=== PATIENT | female | born 1965 | race Caucasian/White ===

== ENCOUNTER 2024-09-26 23:20 | Observation (INO) | payer OTHER, SELFPAY ==
[2024-09-26] VITALS (8 sets, daily range): BP systolic 178–193; BP diastolic 95–110; PULSE 88–114; RESP 13–23; TEMP 36.7; O2SAT 99–100
--- NOTE | ~2024-09-26 | XR_ITS ---
CHEST RADIOGRAPH, PA AND LATERAL CLINICAL HISTORY: CHEST PAIN . COMPARISON: 10/03/2004 TECHNIQUE: PA and lateral views of the chest. FINDINGS The cardiomediastinal silhouette is unremarkable. The lungs are clear. IMPRESSION: No focal infiltrate or effusion. Reviewed, dictated and finalized at location A.
--- NOTE | 2024-09-26 23:23 | ECG_ITS ---
Test Date: 2024-09-26 23:26:39 Measurements Intervals [place] Rate: 92 P: 33 IN: 163 QRS: 8 QRSD: 106 T: 3 QT: 366 QTc: 453 Interpretive Statements SINUS RHYTHM POSSIBLE RIGHT VENTRICULAR CONDUCTION DELAY [RSR (QR) IN V1/V2] POSSIBLE LATERAL MYOCARDIAL INFARCTION , PROBABLY OLD [30 ms Q WAVE IN I/aVL/V5/V6] No previous ECG available for comparison Electronically Signed On 09-27-2024 14:00:47 CDT by Miki Rowland M.D.
[2024-09-26 23:38] LABS: Hematocrit 38.4 % (37.0-47.0); Hemoglobin 13.9 g/dL (12.0-15.0); Immature Granulocyte Percent A 0.2 % (0-0.5); Lymphocytes Absolute Auto 1.68 K/mm3 (0.9-3.2); Mean Corpuscular HGB Conc 36.2 g/dl (32-36); Mean Corpuscular Hemoglobin 33.9 pg (26-34); Mean Corpuscular Volume 93.7 fl (80-100); Nucleated Red Blood Cells Absolute Auto 0.000 K/mm3 (0.0-0.012); Nucleated Red Blood Cells Perc 0.0 % (0.0-0.2); Platelet Count Result 236 k/mm3 (150-375); Red Blood Count 4.10 M/mm3 (4.2-5.4); White Blood Count 6.3 K/mm3 (4.5-10.0)
--- NOTE | 2024-09-26 23:45 | ED.CHESTPAIN ---
HPI - Chest Pain General Chief Complaint: Chest Pain <JOHN Crump Last Filed: 09/27/24 02:49> Stated Complaint: chest pain <JOHN Crump Last Filed: 09/27/24 02:49> Time Seen by Provider: 09/26/24 23:34 <JOHN Crump Last Filed: 09/27/24 02:49> Source: patient <JOHN Crump Last Filed: 09/27/24 02:49> Mode of arrival: ambulatory <JOHN Crump Last Filed: 09/27/24 02:49> Limitations: no limitations <JOHN Crump Last Filed: 09/27/24 02:49> History of Present Illness HPI narrative: This is a 59-year-old female that presents to the emergency department for feelings of palpitations. Reports she was seated when this started. She felt like her heart was racing. Her heart rate was in the 100s. She then noted some intermittent achy left-sided chest discomfort. Reports she recently had a stress test in the last 5 months. No other current symptoms. <JOHN Crump Last Filed: 09/27/24 02:49> Related Data Home Medications: Home Medications ?Medication ?Instructions ?Recorded ?Confirmed ?Last Taken ?Type hydrochlorothiazide 25 mg tablet 25 mg PO DAILY 09/26/24 09/26/24 Unknown History losartan 50 mg tablet 25 mg PO DAILY 09/26/24 09/26/24 Unknown History metoprolol tartrate 50 mg tablet 50 mg PO BID 09/26/24 09/26/24 Unknown History <JOHN Crump Last Filed: 09/27/24 02:49> Allergies/Adverse Reactions: Allergies Allergy/AdvReac Type Severity Reaction Status Date / Time lisinopril AdvReac Intermediate Cough Verified 09/26/24 23:28 <JOHN Crump Last Filed: 09/27/24 02:49> Review of Systems Review of Systems: All systems reviewed & are unremarkable except as noted in HPI and below <JOHN Crump Last Filed: 09/27/24 02:49> [facility] Past Medical History Medical History: Medical History (Updated 09/27/24 @ 01:54 by Minda Ramos PA-C) History of hypertension <Minda Ramos PA-C - Last Filed: 09/27/24 02:49> Social History Social History: Social History (Updated 09/26/24 @ 23:47 by Minda Ramos PA-C) Smoking status: Never smoker <Minda Ramos PA-C - Last Filed: 09/27/24 02:49> Exam Narrative: GENERAL: Well-appearing, well-nourished, and in no acute distress. HEAD: Normocephalic, atraumatic. EYES: EOMI. ENT: Nares clear, no rhinorrhea or epistaxis. Mucous membranes moist. Oropharynx without tonsillar hypertrophy exudate or other lesions. CHEST: Clear to auscultation. No respiratory distress. No wheezes rales or rhonchi HEART: Regular rate and rhythm. No murmur heard. Normal peripheral pulses. EXTREMITIES: Normal range of motion. No edema. SKIN: Warm, dry, no rash. NEURO: No focal deficits. Alert and oriented x3. PSYCH: Normal mood and affect <Minda Ramos PA-C - Last Filed: 09/27/24 02:49> Course Course Emergency Course: Patient updated on her workup and recommendation for admission <Minda Ramos PA-C - Last Filed: 09/27/24 02:49> CLAIMS SUPPORT SPECIALIST/PA Physician Supervision This visit was performed by both a physician and an APC. I performed all aspects of the MDM as documented. <Romero Bonilla MD - Last Filed: 09/27/24 02:54> Consultations Consultation #1: Spoke with hospitalist about patient and workup who accepts admission <Minda Ramos PA-C - Last Filed: 09/27/24 02:49> Date: 09/27/24 <Minda Raoms PA-C - Last Filed: 09/27/24 02:49> Vital Signs Vital signs: Vital Signs Temperature 36.7 C 09/26/24 23:23 Pulse Rate 92 09/26/24 23:23 Respiratory Rate 20 09/26/24 23:23 Blood Pressure 193/110 H 09/26/24 23:23 Pulse Oximetry 100 09/26/24 23:23 Oxygen Delivery Room Air 09/26/24 23:23 Temperature 36.7 C 09/26/24 23:23 Pulse Rate 77 09/27/24 02:30 Respiratory Rate 13 09/27/24 02:30 Blood Pressure 153/92 H 09/27/24 02:21 Pulse Oximetry 96 09/27/24 02:30 Oxygen Delivery Room Air 09/27/24 01:11 <Minda Ramos PA-C - Last Filed: 09/27/24 02:49> Vital Signs Temperature 36.7 C 09/26/24 23:23 Pulse Rate 92 09/26/24 23:23 Respiratory Rate 20 09/26/24 23:23 Blood Pressure 193/110 H 09/26/24 23:23 Pulse Oximetry 100 09/26/24 23:23 Oxygen Delivery Room Air 09/26/24 23:23 Temperature 36.7 C 09/26/24 23:23 Pulse Rate 77 09/27/24 02:30 Respiratory Rate 13 09/27/24 02:30 Blood Pressure 153/92 H 09/27/24 02:21 Pulse Oximetry 96 09/27/24 02:30 Oxygen Delivery Room Air 09/27/24 01:11 <Romero Bonilla MD - Last Filed: 09/27/24 02:54> MDM - Chest Pain MDM Narrative Medical decision making narrative: Patient presents to the ER for chest pain, palpitations. Hypertensive upon arrival. This downtrended without intervention. Patient in normal sinus rhythm. CBC without concerning findings. Metabolic panel with hyponatremia, hypokalemia. Magnesium is also low. L of normal saline ordered. 2 g of magnesium as well as 40 mg of potassium given. EKG without acute ST changes, her baseline troponin is negative. Her heart score is 2. Patient will be admitted for further management of electrolyte derangements. She does report being outside most of the day, she also takes a diuretic. <Minda Ramos PA-C - Last Filed: 09/27/24 02:49> Differential Diagnosis Differential diagnosis: Likely stable angina, atypical chest pain, costochondritis and other (hypertension, hypertensive urgency) <Minda Ramos PA-C - Last Filed: 09/27/24 02:49> Lab Data Attestation: I reviewed the patient's lab results. <Minda Ramos PA-C - Last Filed: 09/27/24 02:49> Result diagrams: 09/26/24 23:33 09/26/24 23:33 <Minda Ramos PA-C - Last Filed: 09/27/24 02:49> Labs: Lab Results 09/26/24 09/27/24 Range/Units 23:33 02:17 WBC 6.3 (4.5-10.0) K/mm3 RBC 4.10 L (4.2-5.4) M/mm3 Hgb 13.9 (12.0-15.0) g/dL Hct 38.4 (37.0-47.0) % MCV 93.7 (80-100) fl MCH 33.9 (26-34) pg MCHC 36.2 H (32-36) g/dl RDW 12.2 (11.5-14.5) % Plt Count 236 (150-375) k/mm3 MPV 9.0 (7.4-10.4) fl Immature Gran % (Auto) 0.2 (0-0.5) % Neut % (Auto) 64.6 (45.5-73.1) % Lymph % (Auto) 26.7 (18.3-44.2) % [place] % (Auto) 7.3 (2.6-8.5) % Eos % (Auto) 0.6 (0-4.4) % Baso % (Auto) 0.6 (0.2-1.2) % Lymph # (Auto) 1.68 (0.9-3.2) K/mm3 [place] # (Auto) 0.5 (0.1-0.6) K/mm3 Eos # (Auto) 0.0 (0-0.3) K/mm3 Baso # (Auto) 0.0 (0.0-0.1) K/mm3 Abs Immat Gran (auto) 0.01 (0.00-0.031) K/mm3 Absolute Neuts (auto) 4.1 (1.3-6.7) K/mm3 Absolute Nucleated RBC 0.000 (0.0-0.012) K/mm3 Nucleated RBC % 0.0 (0.0-0.2) % PT 12.9 (11.1-14.7) Seconds INR 1.0 APTT 29.7 (22.3-36.8) Seconds Sodium 123 L (137-145) mmol/L Potassium 3.2 L (3.4-5.0) mmol/L Chloride 86 L (98-107) mmol/L Carbon Dioxide 24 (22-30) mmol/L Anion Gap 13 H (4-12) mmol/L BUN 6 L (7-17) mg/dL Creatinine 0.77 (0.7-1.0) mg/dL Estim Creat Clear Calc 72 ml/min Estimated GFR > 60 (59 - ) Glucose 86 (65-110) mg/dL Calcium 9.7 (8.4-10.2) mg/dL Magnesium 1.5 L (1.6-2.3) mg/dL Total Bilirubin 1.1 (0.2-1.3) mg/dL AST 60 H (14-36) U/L ALT 48 H (6-35) U/L Alkaline Phosphatase 103 (38-126) U/L Total Creatine Kinase 114 (30-135) U/L Troponin I < 0.012 < 0.012 (0.000-0.034) ng/mL Total Protein 8.4 H (6.3-8.2) g/dL Albumin 4.9 (3.5-5.1) g/dL Lipase 158 (23-300) U/L TSH (Reflex) Pending Urine Color Yellow (Yellow) Urine Appearance Clear (Clear) Urine pH 6.5 (5.0-9.0) Ur Specific [place] 1.009 (1.001-1.035) Urine Protein Negative (Negative) mg/dL Urine Glucose (UA) Negative (Negative) mg/dL Urine Ketones Trace H (Negative) mg/dL Ur Blood (Man) Negative (Negative) Urine Nitrate Negative (Negative) Urine Bilirubin Negative (Negative) Urine Urobilinogen 0.2 (<2.0) mg/dL Leukocyte Esterase Rfl Negative (Negative) KEVYN/UL <Minda Ramos PA-C - Last Filed: 09/27/24 02:49> Lab Results 09/26/24 09/27/24 Range/Units 23:33 02:17 WBC 6.3 (4.5-10.0) K/mm3 RBC 4.10 L (4.2-5.4) M/mm3 Hgb 13.9 (12.0-15.0) g/dL Hct 38.4 (37.0-47.0) % MCV 93.7 (80-100) fl MCH 33.9 (26-34) pg MCHC 36.2 H (32-36) g/dl RDW 12.2 (11.5-14.5) % Plt Count 236 (150-375) k/mm3 MPV 9.0 (7.4-10.4) fl Immature Gran % (Auto) 0.2 (0-0.5) % Neut % (Auto) 64.6 (45.5-73.1) % Lymph % (Auto) 26.7 (18.3-44.2) % [place] % (Auto) 7.3 (2.6-8.5) % Eos % (Auto) 0.6 (0-4.4) % Baso % (Auto) 0.6 (0.2-1.2) % Lymph # (Auto) 1.68 (0.9-3.2) K/mm3 [place] # (Auto) 0.5 (0.1-0.6) K/mm3 Eos # (Auto) 0.0 (0-0.3) K/mm3 Baso # (Auto) 0.0 (0.0-0.1) K/mm3 Abs Immat Gran (auto) 0.01 (0.00-0.031) K/mm3 Absolute Neuts (auto) 4.1 (1.3-6.7) K/mm3 Absolute Nucleated RBC 0.000 (0.0-0.012) K/mm3 Nucleated RBC % 0.0 (0.0-0.2) % PT 12.9 (11.1-14.7) Seconds INR 1.0 APTT 29.7 (22.3-36.8) Seconds Sodium 123 L (137-145) mmol/L Potassium 3.2 L (3.4-5.0) mmol/L Chloride 86 L (98-107) mmol/L Carbon Dioxide 24 (22-30) mmol/L Anion Gap 13 H (4-12) mmol/L BUN 6 L (7-17) mg/dL Creatinine 0.77 (0.7-1.0) mg/dL Estim Creat Clear Calc 72 ml/min Estimated GFR > 60 (59 - ) Glucose 86 (65-110) mg/dL Calcium 9.7 (8.4-10.2) mg/dL Magnesium 1.5 L (1.6-2.3) mg/dL Total Bilirubin 1.1 (0.2-1.3) mg/dL AST 60 H (14-36) U/L ALT 48 H (6-35) U/L Alkaline Phosphatase 103 (38-126) U/L Total Creatine Kinase 114 (30-135) U/L Troponin I < 0.012 < 0.012 (0.000-0.034) ng/mL Total Protein 8.4 H (6.3-8.2) g/dL Albumin 4.9 (3.5-5.1) g/dL Lipase 158 (23-300) U/L TSH (Reflex) Pending Urine Color Yellow (Yellow) Urine Appearance Clear (Clear) Urine pH 6.5 (5.0-9.0) Ur Specific [place] 1.009 (1.001-1.035) Urine Protein Negative (Negative) mg/dL Urine Glucose (UA) Negative (Negative) mg/dL Urine Ketones Trace H (Negative) mg/dL Ur Blood (Man) Negative (Negative) Urine Nitrate Negative (Negative) Urine Bilirubin Negative (Negative) Urine Urobilinogen 0.2 (<2.0) mg/dL Leukocyte Esterase Rfl Negative (Negative) KEVYN/UL <Romero Bonilla MD - Last Filed: 09/27/24 02:54> Imaging Data Radiologist's impression: Chest x-ray: No focal consolidation, pleural effusion or pneumothorax. No cardiomegaly <Minda Ramos PA-C - Last Filed: 09/27/24 02:49> ECG Data EKG #1: ECG completion date: 09/26/24 <JOHN Crump Last Filed: 09/27/24 02:49> EKG Interpretation: normal rate, sinus rhythm, no ST changes and normal QT <Minda Ramos PA-C - Last Filed: 09/27/24 02:49> Critical Care Time Critical Care Time Critical Care Time: No <JOHN Crump Last Filed: 09/27/24 02:49> Discharge Plan Discharge Clinical Impression: Hyponatremia, Hypokalemia Chest pain Qualifiers: Chest pain type: unspecified Qualified Code(s): R07.9 - Chest pain, unspecified <JOHN Crump Last Filed: 09/27/24 02:49> Patient Disposition: Still a Patient <JOHN Crump Last Filed: 09/27/24 02:49> Condition: Stable <JOHN Crump Last Filed: 09/27/24 02:49> Patient Language: Slovenian <JOHN Crump Last Filed: 09/27/24 02:49> Prescriptions: No Action hydrochlorothiazide 25 mg tablet 25 mg PO DAILY losartan 50 mg tablet 25 mg PO DAILY metoprolol tartrate 50 mg tablet 50 mg PO BID <JOHN Crump Last Filed: 09/27/24 02:49> Follow-up/Referrals: Haris Craig MD [Physician] - <JOHN Crump Last Filed: 09/27/24 02:49> Quality HEART score for chest pain patients History: slightly suspicious <JOHN Crump Last Filed: 09/27/24 02:49> ECG: normal <JOHN Crump Last Filed: 09/27/24 02:49> Age: > 45 and < 65 years <JOHN Crump Last Filed: 09/27/24 02:49> Risk factors: 1 or 2 risk factors <JOHN Crump Last Filed: 09/27/24 02:49> Troponin: < or = to 1x normal limit <JOHN Crump Last Filed: 09/27/24 02:49> Heart score: 2 <JOHN Crump Last Filed: 09/27/24 02:49> 2 <Romero Bonilla MD - Last Filed: 09/27/24 02:54>
[2024-09-26] MEDS: ASPIRIN 81 MG CHEWABLE TABLET 324 MG PO (23:47)
[2024-09-26 23:48] LABS: Alanine Aminotransferase 48 U/L (6-35); Albumin Level 4.9 g/dL (3.5-5.1); Alkaline Phosphatase 103 U/L (38-126); Anion Gap 13 mmol/L (4-12); Aspartate Amino Transferase 60 U/L (14-36); Bilirubin,Total 1.1 mg/dL (0.2-1.3); Blood Urea Nitrogen 6 mg/dL (7-17); Calcium 9.7 mg/dL (8.4-10.2); Carbon Dioxide 24 mmol/L (22-30); Chloride 86 mmol/L (98-107); Estimated CRCL calculation 72 ml/min; Estimated Glomerular Filt Rate > 60; Glucose 86 mg/dL (65-110); Lipase 158 U/L (23-300); Potassium 3.2 mmol/L (3.4-5.0); Sodium 123 mmol/L (137-145); Total Protein 8.4 g/dL (6.3-8.2)
[2024-09-26 23:50] LABS: INR 1.0; Prothrombin Time 12.9 Seconds (11.1-14.7)
[2024-09-26 23:51] LABS: Partial Thromboplastin Time 29.7 Seconds (22.3-36.8)
[2024-09-26] MEDS: MORPHINE SULFATE (*CRX) 4 MG/ML INJ IV PUSH (23:58)
[2024-09-26] MEDS: ONDANSETRON INJ 4 MG/2 ML VIAL IV PUSH (23:58)
[2024-09-27] VITALS (34 sets, daily range): BP systolic 141–172; BP diastolic 80–98; PULSE 75–89; RESP 13–21; TEMP 36.5–36.7; O2SAT 92–100; BMI 28.5
[2024-09-27] LABS: Troponin I < 0.012 ng/mL (0.000-0.034)
[2024-09-27 00:17] LABS: Creatine Kinase 114 U/L (30-135); Magnesium 1.5 mg/dL (1.6-2.3)
[2024-09-27] MEDS: POTASSIUM CHLORIDE 20 MEQ ER TABLET 40 MEQ PO (00:31)
[2024-09-27] MEDS: SODIUM CHLORIDE 0.9% IV 1,000 ML 999 ML IV CONT (00:31)
[2024-09-27] MEDS: MAGNESIUM SULF 2 GM/WATER 50ML 2 GM/50 ML BAG IVPB (00:45)
--- NOTE | 2024-09-27 02:07 | ECG_ITS ---
Test Date: 2024-09-27 02:13:11 Measurements Intervals [place] Rate: 81 P: 24 IN: 170 QRS: 19 QRSD: 102 T: 10 QT: 390 QTc: 455 Interpretive Statements SINUS RHYTHM POSSIBLE RIGHT VENTRICULAR CONDUCTION DELAY [RSR (QR) IN V1/V2] POSSIBLE LATERAL MYOCARDIAL INFARCTION , PROBABLY OLD [30 ms Q WAVE IN I/aVL/V5/V6] no change compared to prior EKG Electronically Signed On 09-27-2024 14:03:09 CDT by Miki Rowland M.D.
[2024-09-27 02:24] LABS: Add Urine Microscopic? NO; Appearance Urine Clear (Clear); Glucose Urine UA Negative (Negative); Leukocyte Esterase Ur Negative LEU/UL (Negative); Nitrate Urine Negative (Negative); Specific Grav Ur 1.009 (1.001-1.035)
[2024-09-27 02:46] LABS: Troponin I < 0.012 ng/mL (0.000-0.034)
[2024-09-27 03:05] LABS: Thyroid Stimulating Hormone Reflex 1.980 uIU/mL (0.465-4.68)
--- NOTE | 2024-09-27 03:46 | ADMGEN ---
This patient, Karina Rico, was admitted to Medical Room 344-01. Patient/family oriented to hospital policies and general routines including ID bracelet, bed and alarms, visiting hours, pain management, procedures, bathroom and other care routines, personal items, smoking policy, room service/diet, and visiting hours. Information on how to activate the Rapid Response Team has been discussed. Patient/Family are encouraged to report perceived risks to care and to ask questions if they do not understand what they are told or what they should do.
[2024-09-27 05:48] LABS: Hematocrit 34.7 % (37.0-47.0); Hemoglobin 12.6 g/dL (12.0-15.0); Immature Granulocyte Percent A 0.2 % (0-0.5); Lymphocytes Absolute Auto 1.44 K/mm3 (0.9-3.2); Mean Corpuscular HGB Conc 36.3 g/dl (32-36); Mean Corpuscular Hemoglobin 34.3 pg (26-34); Mean Corpuscular Volume 94.6 fl (80-100); Nucleated Red Blood Cells Absolute Auto 0.000 K/mm3 (0.0-0.012); Nucleated Red Blood Cells Perc 0.0 % (0.0-0.2); Platelet Count Result 193 k/mm3 (150-375); Red Blood Count 3.67 M/mm3 (4.2-5.4); White Blood Count 4.6 K/mm3 (4.5-10.0)
[2024-09-27 06:01] LABS: Alanine Aminotransferase 37 U/L (6-35); Albumin Level 3.9 g/dL (3.5-5.1); Alkaline Phosphatase 77 U/L (38-126); Anion Gap 8 mmol/L (4-12); Aspartate Amino Transferase 45 U/L (14-36); Bilirubin,Total 1.1 mg/dL (0.2-1.3); Blood Urea Nitrogen 5 mg/dL (7-17); Calcium 9.0 mg/dL (8.4-10.2); Carbon Dioxide 26 mmol/L (22-30); Chloride 90 mmol/L (98-107); Estimated CRCL calculation 81 ml/min; Estimated Glomerular Filt Rate > 60; Glucose 75 mg/dL (65-110); Magnesium 2.0 mg/dL (1.6-2.3); Potassium 3.8 mmol/L (3.4-5.0); Sodium 124 mmol/L (137-145); Total Protein 6.7 g/dL (6.3-8.2)
[2024-09-27 06:13] LABS: Troponin I < 0.012 ng/mL (0.000-0.034)
[2024-09-27] MEDS: ASPIRIN 81 MG CHEWABLE TABLET PO (08:16)
[2024-09-27] MEDS: METOPROLOL TARTRATE 50 MG TAB PO (08:16)
[2024-09-27] MEDS: LOSARTAN POTASSIUM 25 MG TABLET PO (08:17)
[2024-09-27] MEDS: PANTOPRAZOLE 40 MG TABLET PO (08:17)
[2024-09-27] MEDS: ENOXAPARIN 40 MG/0.4 ML SYRINGE SUB-Q (08:17)
[2024-09-27] MEDS: SODIUM CHLORIDE 0.9% IV 1,000 ML 250 ML IV CONT (12:03)
[2024-09-27 13:15] LABS: Anion Gap 15 mmol/L (4-12); Blood Urea Nitrogen 6 mg/dL (7-17); Calcium 9.4 mg/dL (8.4-10.2); Carbon Dioxide 21 mmol/L (22-30); Chloride 90 mmol/L (98-107); Estimated CRCL calculation 77 ml/min; Estimated Glomerular Filt Rate > 60; Glucose 72 mg/dL (65-110); Potassium 3.6 mmol/L (3.4-5.0); Sodium 126 mmol/L (137-145)
--- NOTE | 2024-09-27 13:49 | P.SS_ITS ---
Same Day Admit/Disch: HPI History of Present Illness Chief complaint: Palpatations Narrative: Karina Rico is a 59 year old female who presented to the ED with complaints of ill feeling with palpatations and left sided chest discomfort. Patient reported past medical history of HTN and GERD. She reported a recent stress test less then 5 months prior that was negative. Patient reported yesterday she was outside all day in the heat had 3 cocktails but reported no water hydration and she did take her hydrochlorothiazide of 25 mg at morning. patient in the emergency department was found to be dehydrated her absence of her labs showing hyponatremia and trace ketones in urine. Patient was also found to have hyper kalemia and hypomagnesia likely all through causes of patient's palpitations. Patient was also tachycardiac at [address]/T changes on EKG. patient was started on IV fluids emergency department potassium magnesium replaced patient admitted to the medical unit for further evaluation and treatment of hyponatremia secondary to severe dehydration. [facility] Past Medical History Medical History GERD (gastroesophageal reflux disease) History of hypertension Family History Family History Mother Lung cancer Breast cancer Emphysema lung Father COPD (chronic obstructive pulmonary disease) CHF (congestive heart failure) Emphysema lung Social History Social History Smoking status: Never smoker Alcohol intake: current Substance use: never Other substance usage details: social Do You Feel Safe in your Home?: Yes Lack of Transportation: No Lack of Food: Never True Current Housing: I Have Housing Concerned About Future Housing: No Difficulty Paying Gas/Electric Bills: No Difficulty Paying for Meds: No Currently Unemployed: No Education: High School Diploma/GED Difficulty w/ Childcare or Family Care: No Spiritual care concerns: No Same Day Admit/Disch: Med Pre-admit Medications Home Medications ?Medication ?Instructions ?Recorded ?Confirmed ?Type hydrochlorothiazide 25 mg tablet 25 mg PO DAILY 09/26/24 09/26/24 History losartan 50 mg tablet 25 mg PO DAILY 09/26/24 09/26/24 History metoprolol tartrate 50 mg tablet 50 mg PO BID 09/26/24 09/26/24 History pantoprazole 40 mg tablet,delayed 40 mg PO QAM 09/27/24 09/27/24 History release (Protonix) potassium 20 mg chewable tablet 20 mg PO DAILY 09/27/24 09/27/24 History Review of Systems Review of Systems All systems reviewed & are unremarkable except as noted in HPI and below Constitutional Constitutional: Reports no additional constitutional complaints Eyes Eyes: Reports no additional eye complaints Cardiovascular Cardiovascular: Reports no additional cardiovascular complaints Respiratory Respiratory: Reports no additional respiratory complaints Gastrointestinal Gastrointestinal: Reports no additional gastrointestinal complaints Musculoskeletal Musculoskeletal: Reports no additional musculoskeletal complaints Integumentary/Breasts Skin/Breast: Reports system reviewed and no additional complaints, except as docu Psychiatric Psychiatric: Reports no additional psychiatric complaints Exam Const: General: comfortable and no acute distress HENMT: Ears: TM's normal bilaterally Mouth: Yes moist mucous membranes Eyes: General: appearance normal, both eyes and all related structures Sclera: sclerae normal Pupils: Equal, round and reactive pupils present Neck: Neck: supple and no JVD Resp: Effort & Inspection: normal respiratory effort Auscultation: clear to auscultation bilaterally Cardio: Rate: regular rate Rhythm: regular rhythm GI: GI Palp: Yes Soft to palpation Auscultation: normal bowel sounds Skin: General skin exam: normal color and no rashes or lesions noted Wounds: no wounds Neuro: General: gait normal Speech: normal speech Motor exam (neuro): 5/5 motor strength present throughout Sensory Exam: normal sensation Extrem: General: normal to inspection Psych: Mental Status: mental status grossly normal Affect: normal affect DS: Data Data Completed and Pending Labs on day of discharge: Labs from last 24 hours 09/27/24 09/27/24 09/27/24 12:54 05:27 02:17 WBC 4.6 RBC 3.67 L Hgb 12.6 Hct 34.7 L MCV 94.6 MCH 34.3 H MCHC 36.3 H RDW 11.9 Plt Count 193 MPV 9.4 Immature Gran % (Auto) 0.2 Neut % (Auto) 58.8 Lymph % (Auto) 31.2 [place] % (Auto) 8.5 Eos % (Auto) 0.4 Baso % (Auto) 0.9 Lymph # (Auto) 1.44 [place] # (Auto) 0.4 Eos # (Auto) 0.0 Baso # (Auto) 0.0 Abs Immat Gran (auto) 0.01 Absolute Neuts (auto) 2.7 Absolute Nucleated RBC 0.000 Nucleated RBC % 0.0 PT INR APTT Sodium 126 L 124 L Potassium 3.6 3.8 Chloride 90 L 90 L Carbon Dioxide 21 L 26 Anion Gap 15 H 8 BUN 6 L 5 L Creatinine 0.72 0.68 L Estim Creat Clear Calc 77 81 Estimated GFR > 60 > 60 Glucose 72 75 Calcium 9.4 9.0 Phosphorus 3.7 Magnesium 2.0 Total Bilirubin 1.1 AST 45 H ALT 37 H Alkaline Phosphatase 77 Total Creatine Kinase Troponin I < 0.012 < 0.012 Total Protein 6.7 Albumin 3.9 Lipase TSH (Reflex) 1.980 Urine Color Yellow Urine Appearance Clear Urine pH 6.5 Ur Specific [place] 1.009 Urine Protein Negative Urine Glucose (UA) Negative Urine Ketones Trace H Ur Blood (Man) Negative Urine Nitrate Negative Urine Bilirubin Negative Urine Urobilinogen 0.2 Leukocyte Esterase Rfl Negative 09/26/24 23:33 WBC 6.3 RBC 4.10 L Hgb 13.9 Hct 38.4 MCV 93.7 MCH 33.9 MCHC 36.2 H RDW 12.2 Plt Count 236 MPV 9.0 Immature Gran % (Auto) 0.2 Neut % (Auto) 64.6 Lymph % (Auto) 26.7 [place] % (Auto) 7.3 Eos % (Auto) 0.6 Baso % (Auto) 0.6 Lymph # (Auto) 1.68 [place] # (Auto) 0.5 Eos # (Auto) 0.0 Baso # (Auto) 0.0 Abs Immat Gran (auto) 0.01 Absolute Neuts (auto) 4.1 Absolute Nucleated RBC 0.000 Nucleated RBC % 0.0 PT 12.9 INR 1.0 APTT 29.7 Sodium 123 L Potassium 3.2 L Chloride 86 L Carbon Dioxide 24 Anion Gap 13 H BUN 6 L Creatinine 0.77 Estim Creat Clear Calc 72 Estimated GFR > 60 Glucose 86 Calcium 9.7 Phosphorus Magnesium 1.5 L Total Bilirubin 1.1 AST 60 H ALT 48 H Alkaline Phosphatase 103 Total Creatine Kinase 114 Troponin I < 0.012 Total Protein 8.4 H Albumin 4.9 Lipase 158 TSH (Reflex) Urine Color Urine Appearance Urine pH Ur Specific [place] Urine Protein Urine Glucose (UA) Urine Ketones Ur Blood (Man) Urine Nitrate Urine Bilirubin Urine Urobilinogen Leukocyte Esterase Rfl DS: Summary Hospital Course Reason for hospitalization: Palpitations/Dehydration/ electrolyte imbalances Hospital Course: Karina Rico is a 59 year old female who presented to the ED with complaints of ill feeling with palpatations and left sided chest discomfort. Patient reported past medical history of HTN and GERD. She reported a recent stress test less then 5 months prior that was negative. Patient reported yesterday she was outside all day in the heat had 3 cocktails but reported no water hydration and she did take her hydrochlorothiazide of 25 mg at morning. patient in the emergency department was found to be dehydrated her absence of her labs showing hyponatremia and trace ketones in urine. Patient was also found to have hyper kalemia and hypomagnesia likely all through causes of patient's palpitations. Patient was also tachycardiac at [address]/T changes on EKG. patient was started on IV fluids emergency department potassium magnesium replaced patient admitted to the medical unit for further evaluation and treatment of hyponatremia secondary to severe dehydration. patient seen and assessed evaluated same day denied any further palpitations or chest discomfort sodium continued to have an upper trend was at 1:26 a.m. patient with good oral hydration but had only received 1 L of NS. Patient has hypokalemia hypomagnesia resolved. Spoke with patient regarding my recommendations of discontinuing her hydrochlorothiazide in that she will need to increase her water intake avoid in long appeared of time out in the heat and to continue her oral potassium supplement. I also recommended increasing her losartan to 50 mg daily after discontinuing her hydrochlorothiazide. patient reports she has intermittent episodes of bilateral lower extremity muscle cramps likely related to her diuretic and low magnesium levels to by discontinuing her hydrochlorothiazide this should assist as well as recommended OTC magnesium supplement. I also provided patient with a follow-up BMP order to re-evaluate her hyponatremia which she can follow up with her primary care physician within 1-2 weeks following discharge. patient denied any chest pain, shortness a breath, nausea, vomiting, dizziness, palpitations or chest discomfort at time of discharge all symptoms had resolved patient acknowledged agreed with discharge plan was discharged home. Status at Discharge Functional status at discharge: independent ambulation Overall status at discharge: patient is back to baseline Time Spent with Patient Time attestation: Total time spent providing and/or coordinating discharge services: DS: Admitting Diagnosis Discharge Date 09/27/2024 Admitting Diagnosis Hyponatremia/dehydration/hypokalemia/hypomagnesemia DS: Discharge Diagnosis Discharge Diagnosis (1) Hypomagnesemia: Code(s): E83.42 - Hypomagnesemia Status: Acute (2) Heart palpitations: Code(s): R00.2 - Palpitations Status: Acute (3) Hyponatremia: Code(s): E87.1 - Hypo-osmolality and hyponatremia Status: Acute (4) GERD (gastroesophageal reflux disease): Code(s): K21.9 - Gastro-esophageal reflux disease without esophagitis Status: Acute (5) Hypokalemia: Code(s): E87.6 - Hypokalemia Status: Acute Discharge Plan Discharge Attending physician on discharge: Kenn Gaston Consulting providers: Roma Olmedo Discharging Clinician: Roma Olmedo Anticipated Discharge Date/Time: 09/27/24 14:02 Patient Disposition: Home Activity: may shower and as tolerated Diet: heart healthy Discharge Instructions: 1). Dehydration/Hyponatremia (low sodium levels) * Encourage an increase in water consumption * avoid being out in the heat for long periods of time * I am stopping your hydrochlorothiazide which is a diuretic which can worsen dehydration and lower sodium levels * I have included an order for follow-up BMP to re-evaluate your sodium levels in 3 days 2). Hypokalemia (low potassium) * continue your oral potassium supplements 3). Hypomagnesemia (low magnesium levels) * This can lead to heart arrhythmias and muscle cramps * Recommend OTC magnesium supplement 4). Hypertension * I have discontinued your Hydrochlorothiazide and increased her losartan to 50 mg daily * Monitor BP and follow-up with your primary care physician in 2-4 weeks How can you care for yourself at home? ? Keep track of any new symptoms or changes in your symptoms. ? Rest until you feel better. ? Be safe with medicines. Take your medicines exactly as prescribed. Call your doctor if you think you are having a problem with your medicine. ? Do not drive after taking a prescription pain medicine. ? Ensure to follow-up with primary care physician as indicated and provide updated medication list provided to you at discharge. When should you call for help? Call 911 anytime you think you may need emergency care. For example, call if: ? You passed out (lost consciousness). Call your doctor now or seek immediate medical care if: ? You have new symptoms like fever, difficulty breathing, Chest pain, vomiting, or rash. ? You have new or different pain. ? You are confused and are having trouble thinking clearly. ? Your symptoms are getting worse. Watch closely for changes in your health, and be sure to contact your doctor if: ? You do not get better as expected. Patient Instructions: Antibiotic Form Patient Language: Czech Stand Alone Forms: General Discharge Information Follow-up/Referrals: UNKNOWN,DOCTOR [Primary Care Provider] - 2 Weeks Discharge Medications: Continued metoprolol tartrate 50 mg tablet 50 mg PO BID potassium 20 mg tablet,chewable 20 mg PO DAILY pantoprazole [Protonix] 40 mg tablet,delayed release (DR/EC) 40 mg PO QAM Changed losartan 50 mg tablet 50 mg PO DAILY Qty: 30 0RF Discontinued hydrochlorothiazide 25 mg tablet 25 mg PO DAILY Other Ambulatory Orders: Basic Metabolic Panel (Routine) Timeframe: 1 Week Location: Determined by Patient Ordered By: Roma Olmedo Date of admission: 09/27/24 03:22 Primary Care Provider: UNKNOWN,DOCTOR Admitting Provider: Kenn Gaston Attending physician on admission: Kenn Gaston Condition: Stable Quality -Patient's previous records reviewed on admission -ER notes reviewed in detail on admission -discussed all findings and current treatment plan with patient/Family/POA -Consultations reviewed for recommendations -Patient's disposition for safe discharge discussed with piano case and bench assembler Dictation performed by [email or web address] direct speech recognition software, therefore rendering equipment tender variants and typographical errors may occur. Hospitalist MIPS Advance Care Plan I have confirmed that the patient's Advanced Care Plan is present, code status is documented, or surrogate decision maker is listed in patient medical record.: Yes Medication Reconciliation I have utilized all available resources to obtain, update and review the patients current medications (includes all prescriptions, OTC, herbals, cannabis, and nutritional supplements).: Yes The patient is not eligible for med reconciliation; the patient is in a emergent medical situation where delaying treatment would jeopardize the patients health.: No
== END 2024-09-27 14:30 | disposition home or self-care (01) ==
LOC: ANHED 09-27 01:54 → ANH3MED 09-27 08:18
PROVIDERS: Nurse Practitioner; Nurse Practitioner Family; Student in an Organized Health Care Education/Training Program; Admitting Provider Internal Medicine; Emergency Provider Physician Assistant; Visit Provider Internal Medicine
DX: E86.0 Dehydration (principal); E87.1 Hypo-osmolality and hyponatremia; E87.6 Hypokalemia; E83.42 Hypomagnesemia; R07.89 Other chest pain; I10 Essential (primary) hypertension; K21.9 Gastro-esophageal reflux disease without esophagitis; Z79.899 Other long term (current) drug therapy
CPT/HCPCS: 36415; 71046; 80048; 80053; 81003; 82550; 83690; 83735; 84100; 84443; 84484; 85025; 85610; 85730; 93005; 96365; 96366; 96372; 96374; 96375; 99285; A9270; G0378; J1650; J2270; J2405; J3475; J7030